=== PATIENT | male | born 1990 | race Caucasian/White ===

== ENCOUNTER 2021-01-23 17:31 | Emergency (ER) | payer OTHER ==
[2021-01-23 17:48] VITALS: BMI 35.0
[2021-01-23] MEDS ORDERED: ACETAMINOPHEN 325 MG TABLET (FP) PO ONE (18:09)
[2021-01-23] MEDS ORDERED: CASIRIVIMAB/IMDEVIMAB 10 ML in SODIUM CHLORIDE 100 ML IVPB ONE (18:12)
[2021-01-23] MEDS ORDERED: DEXAMETHASONE SOD PHOSPHATE 4 MG/1 ML VIAL IVPUSH ONE (19:20)
[2021-01-23] MEDS ORDERED: AZITHROMYCIN 250 MG TABLET PO ONE (19:20)
[2021-01-23 19:32] LABS: BASO % 0.9 % (0-2.0); EOS % 0.1 % (0-4.5); HEMATOCRIT 43.8 % (35.4-49); HEMOGLOBIN 15.2 GM/dL (11.7-16.9); LYMPH % 26.9 % (8-40); MCHC 34.8 g/dl (32.0-35.9); MEAN CELL VOLUME 80.6 fl (80-96); MEAN PLT VOLUME 11.2 fl (7.5-11.1); MONO % 6.4 % (3.8-10.2); NEUT % 65.7 % (42.8-82.8); PLATELET COUNT 222 10^3/uL (134-434); RBC 5.44 M/mm3 (4.00-5.60); RDW 13.7 % (11.9-15.9); WHITE BLOOD COUNT 4.7 K/mm3 (4.0-10.0)
[2021-01-23 19:40] LABS: INR 1.25 (0.83-1.09)
[2021-01-23 19:43] LABS: ACTIVATED PTT 28.1 SECONDS (25.2-36.5)
[2021-01-23] MEDS ORDERED: AZITHROMYCIN 250 MG TABLET ONE (19:52)
[2021-01-23] MEDS ORDERED: DEXAMETHASONE SOD PHOSPHATE 4 MG/1 ML VIAL ONE (19:52)
[2021-01-23 19:59] LABS: ALBUMIN 4.2 g/dl (3.4-5.0)
[2021-01-23 20:00] LABS: BLOOD UREA NITROGEN 10.3 mg/dL (7-18); CALCIUM 9.2 mg/dL (8.5-10.1)
[2021-01-23 20:03] LABS: CREATININE 0.9 mg/dL (0.55-1.3)
[2021-01-23 20:04] LABS: BILIRUBIN,TOTAL 0.5 mg/dL (0.2-1); TOT PROT 8.3 g/dl (6.4-8.2)
[2021-01-23 21:30] VITALS: BP 136/74; PULSE 90; TEMP 99
== END 2021-01-23 22:47 | disposition home or self-care (01) ==
LOC: JER 17:31
PROC: 3E033GC Introduction of Other Therapeutic Substance into Peripheral Vein, Percutaneous Approach (ICD-10-PCS; principal; 2021-01-23)
DX: U07.1 COVID-19 (principal); J12.82 Pneumonia due to coronavirus disease 2019
CPT/HCPCS: 36415; 71045-TC-FY; 80053; 85025; 85610; 85730; 99284-25; M0240; Q0240

== ENCOUNTER 2021-10-20 13:52 | Emergency (ER) | payer OTHER ==
[2021-10-20 13:58] VITALS: BP 134/70; PULSE 61; TEMP 98.1; BMI 33.6
[2021-10-20] MEDS ORDERED: ASPIRIN 81 MG CHEWABLE TABLETS PO ONE (14:23)
[2021-10-20] MEDS ORDERED: ASPIRIN 81 MG CHEWABLE TABLETS ONE (14:33)
[2021-10-20 14:48] LABS: BASO % 0.5 % (0-2.0); EOS % 1.4 % (0-4.5); HEMATOCRIT 42.3 % (35.4-49); HEMOGLOBIN 14.3 GM/dL (11.7-16.9); LYMPH % 31.6 % (8-40); MCH 27.8 pg (25.7-33.7); MCHC 33.9 g/dl (32.0-35.9); MEAN PLT VOLUME 10.5 fl (7.5-11.1); MONO % 7.8 % (3.8-10.2); NEUT % 58.7 % (42.8-82.8); PLATELET COUNT 302 10^3/uL (134-434); RBC 5.15 M/mm3 (4.00-5.60); RDW 14.2 % (11.9-15.9); WHITE BLOOD COUNT 6.2 K/mm3 (4.0-10.0)
[2021-10-20 14:55] LABS: INR 1.1 (0.83-1.09); PROTHROMBIN TIME (PATIENT) 12.7 SEC (9.7-13.0)
[2021-10-20 14:58] LABS: ACTIVATED PTT 31.2 SECONDS (25.2-36.5)
[2021-10-20 15:09] LABS: CALCIUM 9.3 mg/dL (8.5-10.1); MAGNESIUM 2.4 mg/dL (1.8-2.4)
[2021-10-20 15:10] LABS: ALBUMIN 3.9 g/dl (3.4-5.0)
[2021-10-20 15:12] LABS: CREATININE 0.9 mg/dL (0.55-1.3)
[2021-10-20 15:14] LABS: BILIRUBIN,TOTAL 0.4 mg/dL (0.2-1); TOT PROT 7.1 g/dl (6.4-8.2)
== END 2021-10-20 17:02 | disposition home or self-care (01) ==
LOC: JER 13:52
DX: R07.9 Chest pain, unspecified (principal)
CPT/HCPCS: 36415; 71046-TC-FY; 80053; 83735; 84484; 85025; 85610; 85730; 93005; 93010; 99284-25